=== PATIENT | female | born 1960 | race Caucasian/White ===

== ENCOUNTER → 2023-08-08 11:02 | Outpatient (CLI) | payer BC, SELFPAY ==
--- NOTE | ~2023-08-08 | CT_ITS ---
EXAMINATION: CT lung screening DATE: 08/08/2023 11:15 INDICATION: Cigarette smoking. TECHNIQUE: Computed tomography (CT) of the chest was performed without intravenous contrast. The dose -length product was 93.94 mGy-cm. Automated exposure control and iterative reconstruction technique w ere employed. COMPARISON: None FINDINGS: No endobronchial lesions. No thoracic lymphadenopathy. There is evidence for chronic granul omatous disease. No significant pleural or pericardial effusion. No pneumothorax. There is dependent atelectasis. Moderate thoracic spondylosis. Mild emphysema. IMPRESSION: 1. Lung-RADS category 1: Negative. Continue annual screening with noncontrast low-dose chest CT in 12 months. Reviewed, dictated and finalized at location [facility]. IMPRESSION: 1. Lung-RADS category 1: Negative. Continue annual screening with noncontrast l ow-dose chest CT in 12 months.
== END ==
PROVIDERS: PCP Physician Assistant; Visit Provider Physician Assistant
DX: Z12.2 Encounter for screening for malignant neoplasm of respiratory organs (principal); F17.210 Nicotine dependence, cigarettes, uncomplicated
CPT/HCPCS: 71271

== ENCOUNTER 2025-01-16 09:01 | Outpatient (CLI) | payer BC, SELFPAY ==
--- NOTE | ~2025-01-16 | XR_ITS ---
AP view of the pelvis and AP and lateral views of the left hip Clinical history: Pain Findings: No acute fracture or dislocation is seen. Osseous alignment is anatomic. Bilateral hip and SI joint spaces are preserved. Soft tissues are unremarkable. Impression: No significant abnormality is seen. Reviewed, dictated and finalized at [facility]. Impression: No significant abnormality is seen.
== END 2025-01-16 09:02 | disposition home or self-care (01) ==
LOC: MICIMG 09:03
PROVIDERS: PCP Physician Assistant; Visit Provider Physician Assistant
DX: M25.552 Pain in left hip (principal)
CPT/HCPCS: 73502